=== PATIENT | male | born 1995 | race American Indian/Alaskan Native ===

== ENCOUNTER → 2023-12-25 07:13 | Outpatient (CLI) | payer OTHER, SELFPAY ==
--- NOTE | 2023-12-25 07:16 | DI.MRI.S_ITS ---
PROCEDURE: MR LUMBAR SPINE WO CON INDICATIONS: LUMBAGO WITH SCIATICA LEFT SIDE TECHNIQUE: Noncontrast sagittal T1 spin echo and T2 fast echo, sagittal STIR, and T2 fast spin echo through the lumbar spine. In cases with scoliosis, additional coronal T2 fast spin echo may be performed. COMPARISON: None. FINDINGS: Image quality: Excellent. Alignment and Curvature: Trace retrolisthesis of L5 on S1. Bone Marrow: Marrow is of normal overall signal. No acute vertebral body compression fractures. Spinal Cord: Conus medullaris terminates at the L1 level. Visualized cord demonstrates normal signal and size. Paraspinous Soft Tissues: No paravertebral masses. T12-L1: Normal appearance. L1-L2: Normal appearance. L2-L3: Chronic disc height loss. Minimal disc bulge. No canal stenosis or foraminal stenosis. L3-L4: No canal stenosis or foraminal stenosis. L4-L5: Annulus tear plus mild broad-based central posterior disc protrusion.. Epidural lipomatosis. Mild facet hypertrophy. Ejca-fe-esezmabe canal stenosis. Reference axial image 28 of series 5. No significant foraminal stenosis. L5-S1: Chronic disc height loss. Trace retrolisthesis of L5 on S1. Diffuse disc bulge with superimposed mild left paracentral disc protrusion with a degree of impingement on both S1 nerve roots in the lateral recesses, left greater than right. Reference sagittal T2 image 11 of series 2 and axial T2 image 33 of series 5. Bilateral facet hypertrophy. Mild bilateral foraminal narrowing. IMPRESSION: 1. At L5-S1, there is disc bulge with superimposed left paracentral disc protrusion. There is a degree of impingement on both S1 nerve roots in the lateral recesses, left greater than right. 2. At L4-L5, there is multifactorial nali-jk-jivtbrcp canal stenosis. Dictated by: Venkata Benoit M.D. on 12/25/2023 at 10:46 Approved by: Venkata Benoit M.D. on 12/25/2023 at 10:53
== END ==
PROVIDERS: PCP Nurse Practitioner Family; Referring Provider Nurse Practitioner Family; Visit Provider Nurse Practitioner Family
DX: M51.16 Intervertebral disc disorders with radiculopathy, lumbar region (principal); M48.061 Spinal stenosis, lumbar region without neurogenic claudication
CPT/HCPCS: 72148